=== PATIENT | male | born 1980 | race Two or more races ===

== ENCOUNTER 2025-02-07 12:20 | Inpatient (IN) | payer MEDICAID, OTHER ==
[~2025-02-07] VITALS: Ht 167.6 cm; Wt 61.9 kg
[2025-02-07] MEDS: SODIUM CHLORIDE 0.9% 2,000 ML IV ONE (12:45)
--- NOTE | 2025-02-07 12:53 | ED.PDOC ---
History of Present Illness(SKN HPI Comments 44 year old male presents to the ED with RT hand swelling onset 2 days. Patient states he was cleaning trash from his backyard, is unsure whether he had a spider bite or nail puncture. Since then, patient has been experiencing pain, swelling, drainage from RT hand. Denies any PMHx as well as fever, chills, nausea, vomiting, diarrhea, chest pain, shortness of breath, dizziness. No other symptoms or modifying factors present at this time. Chief Complaint: Cellulitis Time Seen by MD: 12:35 History of Present Illness: Medications, Allergies Allergies: Coded Allergies: NO KNOWN ALLERGIES (Unverified , 02/07/25) Home Meds Reported Medications Olanzapine (Zyprexa) 20 Mg Tab, 10 MG PO DAILY for Schizophrenia, TAB 02/08/25 Aripiprazole (Aripiprazole) 10 Mg Tab, 10 MG PO DAILY for Schizophrenia, TAB 02/08/25 Information Source: Patient Mode of Arrival: Ambulatory Severity: Moderate Timing: Hours Duration: Since onset Prehospital treatment: None Location: Hand (RT) Mechanism: Spontaneous Onset Developed: Other Occurence: Outdoors Object: Unknown Retained Foreign Body: No Tetanus: Unknown History of: None Associated Signs and Symptoms: Redness, Swelling, Pus, Pain Past Medical History PAST MEDICAL HISTORY: Denies Surgical History: Denies all surgeries Family History Family History: Reviewed,noncontributory to illness, No family hx of Cancer, No family hx of DM, No family hx of Heart wisam, No family hx of HTN, No family hx ofKidney wisam, No family hx of Liver wisam, No family hx of Lung wisam, No family hx of Stroke Social History Smoker: Non-Smoker Alcohol: Denies ETOH Use Drugs: Denies Drug Use Lives In: Home Constitutional: denies: chills, diaphoresis, fatigue, fever, malaise, sweats, weakness, others EENTM: denies: blurred vision, double vision, ear bleeding, ear discharge, ear drainage, ear pain, ear ringing, eye pain, eye redness, hearing loss, mouth pain, mouth swelling, nasal discharge, nose bleeding, nose congestion, nose pain, photophobia, tearing, throat pain, throat swelling, voice changes, others Respiratory: denies: cough, hemoptysis, orthopnea, SOB at rest, shortness of breath, SOB with excertion, stridor, wheezing, others Cardiovascular: denies: chest pain, dizzy spells, diaphoresis, Dyspnea on exertion, edema, irregular heart beat, left arm pain, lightheadedness, palpitations, PND, syncope, others Gastrointestinal: denies: abdomen distended, abdominal pain, blood streaked bowels, constipated, diarrhea, dysphagia, difficulty swallowing, hematemesis, melena, nausea, poor appetite, poor fluid intake, rectal bleeding, rectal pain, vomiting, others Genitourinary: denies: burning, dysuria, flank pain, frequency, hematuria, incontinence, penile discharge, penile sore, pain, testicle pain, testicle swelling, urgency, others Neurological: denies: dizziness, fainting, headache, left sided numbness, left sided weakness, numbness, paresthesia, pre-existing deficit, right sided numbness, right sided weakness, seizure, speech problems, tingling, tremors, weakness, others Musculoskeletal: reports: others (RT hand pain, swelling); denies: back pain, gout, joint pain, joint swelling, muscle pain, muscle stiffness, neck pain Integumetry: reports: wounds (RT hand), others (swelling, drainage); denies: bruises, change in color, change in hair/nails, dryness, laceration, lesions, lumps, rash Allergic/Immunocompromised: denies: Difficulty Healing, Frequent Infections, Hives, Itching, others Hematologic/Lymphatic: denies: anemia, blood clots, easy bleeding, easy bruising, swollen glands, others Endocrine: denies: excessive hunger, excessive sweating, excessive thirst, excessive urination, flushing, intolerance to cold, intolerance to heat, unexplained weight gain, unexplained weight loss, others Psychiatric: denies: anxiety, bipolar disorder, depression, hopeless, panic disorder, schizophrenia, sleepless, suicidal, others All Other Systems: Reviewed and Negative Physical Exam General Appearance: No Apparent Distress, Normal HEENT: Normal ENT Inspection, Pharynx Normal, TMs Normal Neck: Full Range of Motion, Non-Tender, Normal, Normal Inspection Respiratory: Chest Non-Tender, Lungs Clear, No Accessory Muscle Use, No Re spiratory Distress, Normal Breath Sounds Cardiovascular: No Edema, No JVD, No Murmur, No Gallop, Normal Peripheral Pulses, Regular Rate/Rhythm Breast Exam: Deferred Gastrointestinal: No Organomegaly, Non Tender, No Pulsatile Mass, Normal Bowel Sounds, Soft Genitalia: Deferred Pelvic: Deferred Rectal: Deferred Extremities: No calf tenderness, Normal capillary refill, Normal inspection, Normal range of motion, Non-tender, No pedal edema Musculoskeletal : Apperance: Normal Neurologic: Alert, 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 Was a procedure done?: No Differential Diagnosis (INTG) Differential Diagnosis: Cellulitis, Contusion, Hematoma, Laceration, Puncture Wound Differential Diagnosis: N/A Differential Diagnosis: Abrasion, Cellulitis, Contusion, Hematoma Abscess: Abscess, Bacteremia, Cellulitis Differential Diagnosis: Osteomyelitis X-Ray, Labs, Meds, VS Vital Signs Date Time Temp Pulse Resp B/P (MAP) Pulse Ox O2 Delivery O2 Flow Rate FiO2 02/07/25 18:15 101 02/07/25 18:00 62 11 94/64 (74) 97 02/07/25 17:30 61 12 94/64 (74) 97 02/07/25 17:01 98.7 72 17 79/54 (62) 100 98.7 02/07/25 16:58 98.7 72 17 79/57 (64) 100 98.7 02/07/25 14:25 97.5 86 17 81/57 (65) 100 97.5 02/07/25 13:00 95 18 99 Room Air 02/07/25 13:00 97.5 95 18 92/57 (69) 99 97.5 02/07/25 12:41 97.7 85 17 90/56 (67) 99 97.7 Lab Test 02/07/25 12:53 02/07/25 12:50 Range/Units Lactic Acid Level 1.5 0.4-2.0 mmol/L White Blood Count 20.7 H 4.4-10.8 10^3/uL Red Blood Count 4.32 L 4.5-5.90 10^6/uL Hemoglobin 14.1 13.5-17.5 g/dL Hematocrit 42.3 41.0-53.0 % Mean Corpuscular Volume 97.9 80.0-100.0 fL Mean Corpuscular Hemoglobin 32.7 H 28.0-32.0 pg Mean Corpuscular Hemoglobin Concent 33.4 32.0-36.0 g/dL Red Cell Distribution Width 13.4 11.8-14.3 % Platelet Count 267 140-450 10^3/uL Mean Platelet Volume 7.6 6.9-10.8 fL Neutrophils (%) (Auto) 90.0 H 37.0-80.0 % Lymphocytes (%) (Auto) 5.0 L 10.0-50.0 % Monocytes (%) (Auto) 4.6 0.0-12.0 % Eosinophils (%) (Auto) 0.1 0.0-7.0 % Basophils (%) (Auto) 0.3 0.0-2.0 % Neutrophils # (Auto) 18.6 H 1.6-8.6 10 ^3/uL Lymphocytes # (Auto) 1.0 0.4-5.4 10 ^3/uL Monocytes # (Auto) 0.9 0-1.3 10 ^3/uL Eosinophils # (Auto) 0 0-0.8 10 ^3/uL Basophils # (Auto) 0.1 0-0.2 10 ^3/uL Nucleated Red Blood Cells 0.1 % Sodium Level 136 136-145 mmol/L Potassium Level 4.6 3.5-5.1 mmol/L Chloride Level 101 98-107 mmol/L Carbon Dioxide Level 27 20-31 mmol/L Anion Gap 8 5-15 Blood Urea Nitrogen 17 9-23 mg/dL Creatinine 0.69 L 0.700-1.30 mg/dL Glomerular Filtration Rate Calc 117 >90 mL/min BUN/Creatinine Ratio 24.6 H 10.0-20.0 Serum Glucose 114 H 74-106 mg/dL Hemoglobin A1c 5.5 <5.7 % A1C Calcium Level 9.2 8.7-10.4 mg/dL Total Bilirubin 0.5 0.2-1.0 mg/dL Aspartate Amino Transferase (AST) 27 13-40 U/L Alanine Aminotransferase (ALT) 35 7-40 U/L Alkaline Phosphatase 110 46-116 U/L Total Protein 6.2 5.7-8.2 g/dL Albumin 3.8 3.2-4.8 g/dL Microbiology Date/Time Source Procedure Growth Status 02/07/25 14:34 Hand Right Gram Stain - Final Resulted 02/07/25 14:34 Hand Right Wound Culture - Preliminary Resulted 02/07/25 13:00 Blood Blood Culture - Preliminary NO GROWTH AFTER 24 HOURS OF INCUBATION. Resulted 02/07/25 12:50 Blood Blood Culture - Preliminary NO GROWTH AFTER 24 HOURS OF INCUBATION. Resulted [facility] [id number] [address] Ph: [phone] DIAGNOSTIC IMAGING Diagnostic Imaging Report : [id number] Signed PATIENT: ALEX NOONANCT: [id number] UNIT: [id number] : 1980 LOC: ER ROOM / BED: / AGE / SEX: 44 / M ADM STATUS: REG ER SERVICE [id number] ORDERING PHYSICIAN: DUNIA WILSON MD PROCEDURE(s): RHAN - R HAND 3 VIEW XRAY REASON: hand infection ORDER NUMBER(s): [id number], ACCESSION NUMBER(s): [id number] XY R HAND 3 VIEW XRAY, INDICATION: hand infection TECHNICAL DATA: Frontal, oblique and lateral views were obtained of the right hand. COMPARISON: None FINDINGS: No fracture is identified. Chronic appearing injury of the 5th metacarpal bone. Joint spaces are maintained. Alignment is anatomic. Dorsal soft tissue swelling in the hand. IMPRESSION: 1. No acute fracture or dislocation of the right hand. 2. Dorsal soft tissue swelling of the hand. HS:Y ATED BY: ROSALINA MORALEZ MD DICTATED DATE/TIME: 02/07/25 130 SIGNED BY: ROSALINA MORALEZ MD SIGNED DATE/TIME: 02/07/25 130 CC: X-Ray, Labs, Meds, VS Comment 1840: Patient seen and examined by Dr. Zuñiga (Orthopedics) Recommend to admit the patient to undergo incision and drainage tomorrow morning NPO post midnight Time of 1ST Reevaluation: 13:05 Reevaluation 1ST: Unchanged Patient Education/Counseling: Diagnosis, Treatment, Prognosis Family Education/Counseling: No Family Present Additional Information The following tests were ordered, and results were reviewed by me: R HAND 3 VIEW XRAY, CBC, CMP, LA W/REFLEX, BLOOD CULTURE, WOUND CULTURE W/ GS I reviewed and agreed with the following test results read by other providers:R HAND 3 VIEW XRAY, I discussed treatment and results with medical personnel and: Patient Comprehensive systems review obtained and negative except for what is stated in the HPI. Departure 1 Departure Time of Disposition: 20:07 (Patient with cellulitis and possible abscess of the right hand. In his purulent drainage. Empirically cover patient with antibiotics and admitted the patient for orthopedic consultation) Impression: Primary Impression: Abscess of right hand Additional Impression: Cellulitis of right hand Disposition: 09 ADMITTED INPATIENT Admit to: Med Surg Condition: Serious Critical Care Note Critical Care Time?: Yes Critical care comment: Purulent cellulitis Authorized and Performed by: Dunia Wilson MD Total critical care time: Approximately 44 minutes Due to a high probability of clinically significant, life threatening deterioration, the patient required my highest level of preparedness to intervene emergently and I personally spent this critical care time directly and personally managing the patient. This critical care time included obtaining a history; examining the patient; pulse oximetry; ordering and review of studies; arranging urgent treatment with development of a management plan; evaluation of patient's response to treatment; frequent reassessment; and, discussions with other providers. This critical care time was performed to assess and manage the high probability of imminent, life-threatening deterioration that could result in multi-organ failure. It was exclusive of separately billable procedures and treating other patients and teaching time. Please see my other sections and the rest of the note for further information on patient assessment and treatment. Stability Stability form required: No I personally scribed for DUNIA WILSON MD ([email or web address]) on 02/07/25 at 12:53. Electronically submitted by Eguenia Miramontes ([email or web address]). I personally scribed for DUNIA WILSON MD ([email or web address]) on 02/07/25 at 13:00. Electronically submitted by Eugenia Miramontes ([email or web address]). I personally scribed for DUNIA WILSON MD ([email or web address]) on 02/07/25 at 14:02. Electronically submitted by Eugenia Miramontes ([email or web address]). I personally scribed for DUNIA WILSON MD ([email or web address]) on 4/1/25 at 18:45. Electronically submitted by Guanako Gaspar ([email or web address]). DUNIA WILSON MD Feb 07, 2025 12:53
--- NOTE | 2025-02-07 13:03 | DVH ---
XY R HAND 3 VIEW XRAY, INDICATION: hand infection TECHNICAL DATA: Frontal, oblique and lateral views were obtained of the right hand. COMPARISON: None FINDINGS: No fracture is identified. Chronic appearing injury of the 5th metacarpal bone. Joint spaces are main tained. Alignment is anatomic. Dorsal soft tissue swelling in the hand. IMPRESSION: 1. No acute fracture or dislocation of the right hand. 2. Dorsal soft tissue swelling of the hand. HS:Y
[2025-02-07 13:15] LABS: Basophils # (auto) 0.1 10 ^3/uL (0-0.2); Basophils % (auto) 0.3 % (0.0-2.0); Eosinophils # (auto) 0 10 ^3/uL (0-0.8); Eosinophils % (auto) 0.1 % (0.0-7.0); Hematocrit 42.3 % (41.0-53.0); Hemoglobin 14.1 g/dL (13.5-17.5); Mean Corpuscular Hemoglobin 32.7 pg (28.0-32.0); Mean Corpuscular Hgb Conc. 33.4 g/dL (32.0-36.0); Mean Corpuscular Volume 97.9 fL (80.0-100.0); Monocytes # (auto) 0.9 10 ^3/uL (0-1.3); Monocytes % (auto) 4.6 % (0.0-12.0); Neutrophils # (auto) 18.6 10 ^3/uL (1.6-8.6); Nucleated Red Blood Cells % 0.1 %; Platelet Count (auto) 267 10^3/uL (140-450); Red Blood Cells 4.32 10^6/uL (4.5-5.90); Red Cell Distribution Width 13.4 % (11.8-14.3); White Blood Cell 20.7 10^3/uL (4.4-10.8)
[2025-02-07] MEDS: ACETAMINOPHEN 325 MG TAB PO ONE (13:29)
[2025-02-07 13:32] LABS: Alanine Aminotransferase 35 U/L (7-40); Albumin 3.8 g/dL (3.2-4.8); Alkaline Phosphatase 110 U/L (46-116); Anion Gap 8 (5-15); Aspartate Aminotransferase 27 U/L (13-40); BUN/Creatinine Ratio 24.6 (10.0-20.0); Blood Urea Nitrogen 17 mg/dL (9-23); Calcium 9.2 mg/dL (8.7-10.4); Carbon Dioxide 27 mmol/L (20-31); Chloride 101 mmol/L (98-107); Potassium 4.6 mmol/L (3.5-5.1); Total Protein 6.2 g/dL (5.7-8.2)
[2025-02-07 13:33] LABS: Bilirubin, Total 0.5 mg/dL (0.2-1.0); Glucose 114 mg/dL (74-106); Sodium 136 mmol/L (136-145)
[2025-02-07] MEDS: VANCOMYCIN 1GM/200ML PM 200 ML IV ONE (14:08)
[2025-02-07] MEDS: SODIUM CHLORIDE 0.9% 1,000 ML IV ONE ×2 (16:00→18:09)
[2025-02-07] MEDS: CEFEPIME 2GM/50ML NS 50 ML IV ONE (17:29)
[2025-02-07] MEDS ORDERED: ONDANSETRON HCL 4 MG/2 ML VIAL IV PRN (18:45)
[2025-02-07] MEDS ORDERED: NITROGLYCERIN 0.4 MG SL TAB SL PRN (18:45)
[2025-02-07] MEDS ORDERED: VANCOMYCIN PER PHARMACY 0 MG IV SCH (18:45)
[2025-02-07] MEDS ORDERED: HYDROmorphone HCL 2 MG/ML VL/or syr IV PRN (18:45)
[2025-02-07] MEDS ORDERED: MORPHINE SULFATE INJ 2 MG/ml SYRG IV PRN (18:45)
--- NOTE | 2025-02-07 18:47 | DVHHP2 ---
History of Present Illness Reason for Visit: Hand Cellulitis History of Present Illness Patient is a 44 year-old male presented to the ED with RT hand swelling onset 2 days. Patient states he was cleaning trash from his backyard, is unsure whether he had a spider bite or nail puncture. Since then, patient has been experienci ng pain, swelling, drainage from RT hand. Patient was initially being transferred to [facility] but unable to find a bed at multiple sites. After discussion with Dr. Saad Sellers, patient will be admitted to [facility] for Surgery AM 02/08/25. Past Medical History None Review of Systems Constitutional: No: Fever, Chills, Sweats, Weakness, Malaise, Other Eyes: No: Pain, Vision change, Conjunctivae inflammation, Eyelid inflammation, Other, Redness ENT: No: Ear pain, Ear discharge, Nose pain, Nose discharge, Nose congestion, Mouth pain, Mouth swelling, Throat pain, Throat swelling, Other Respiratory: No: Cough, Dry, Shortness of breath, SOB with excertion, Wheezing, Hemoptysis, Pleuritic Pain, Sputum, Wheezing, Other Cardiovascular: No: Chest Pain, Palpitations, Orthopnea, Paroxysmal Noc. Dyspnea, Edema, Lt Headedness, Other Gastrointestinal: No: Nausea, Vomiting, Abdominal Pain, Diarrhea, Constipation, Melena, Hematochezia, Other Musculoskeletal: hand pain Skin: No: Rash, Lesions, Jaundice, Bruising, Other Neurological: No: Weakness, Numbness, Incoordination, Change in speech, Confusion, Seizures, Other Allergies: Coded Allergies: NO KNOWN ALLERGIES (Unverified , 02/07/25) Exam Vital Signs Vital Signs Date Time Temp Pulse Resp B/P (MAP) Pulse Ox O2 Delivery O2 Flow Rate FiO2 02/07/25 18:15 101 02/07/25 18:00 11 94/64 (74) 97 02/07/25 17:01 98.7 98.7 02/07/25 13:00 Room Air Exam Gen: in bed NAD Cvs: N S1/S2, RRR Resp: BLAE Abd: Soft, NT, BS+ 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 x 4 Ext: Right hand swelling with drainage Labs/Xrays Labs Test 02/07/25 12:53 02/07/25 12:50 Range/Units Lactic Acid Level 1.5 0.4-2.0 mmol/L White Blood Count 20.7 H 4.4-10.8 10^3/uL Red Blood Count 4.32 L 4.5-5.90 10^6/uL Hemoglobin 14.1 13.5-17.5 g/dL Hematocrit 42.3 41.0-53.0 % Mean Corpuscular Volume 97.9 80.0-100.0 fL Mean Corpuscular Hemoglobin 32.7 H 28.0-32.0 pg Mean Corpuscular Hemoglobin Concent 33.4 32.0-36.0 g/dL Red Cell Distribution Width 13.4 11.8-14.3 % Platelet Count 267 140-450 10^3/uL Mean Platelet Volume 7.6 6.9-10.8 fL Neutrophils (%) (Auto) 90.0 H 37.0-80.0 % Lymphocytes (%) (Auto) 5.0 L 10.0-50.0 % Monocytes (%) (Auto) 4.6 0.0-12.0 % Eosinophils (%) (Auto) 0.1 0.0-7.0 % Basophils (%) (Auto) 0.3 0.0-2.0 % Neutrophils # (Auto) 18.6 H 1.6-8.6 10 ^3/uL Lymphocytes # (Auto) 1.0 0.4-5.4 10 ^3/uL Monocytes # (Auto) 0.9 0-1.3 10 ^3/uL Eosinophils # (Auto) 0 0-0.8 10 ^3/uL Basophils # (Auto) 0.1 0-0.2 10 ^3/uL Nucleated Red Blood Cells 0.1 % Sodium Level 136 136-145 mmol/L Potassium Level 4.6 3.5-5.1 mmol/L Chloride Level 101 98-107 mmol/L Carbon Dioxide Level 27 20-31 mmol/L Anion Gap 8 5-15 Blood Urea Nitrogen 17 9-23 mg/dL Creatinine 0.69 L 0.700-1.30 mg/dL Glomerular Filtration Rate Calc 117 >90 mL/min BUN/Creatinine Ratio 24.6 H 10.0-20.0 Serum Glucose 114 H 74-106 mg/dL Calcium Level 9.2 8.7-10.4 mg/dL Total Bilirubin 0.5 0.2-1.0 mg/dL Aspartate Amino Transferase (AST) 27 13-40 U/L Alanine Aminotransferase (ALT) 35 7-40 U/L Alkaline Phosphatase 110 46-116 U/L Total Protein 6.2 5.7-8.2 g/dL Albumin 3.8 3.2-4.8 g/dL Assessment/Plan Assessment/Plan # Sepsis due to Right Hand Cellulitis - IV Abx - Cultures - Consult Dr. Sellers for surgery in AM Plan discussed with: Other My Orders Orders - DOTTY ULLOA MD Procedure Category Date Status Time Tetanus PHA 02/07/25 Logged [id number] 18:45 Admit ADMIT 02/07/25 Transmitted 18:39 Code Status CODE 02/07/25 Transmitted 18:39 Vital Signs [facility] 02/07/25 In Process 18:39 Review Orders With [facility] 02/07/25 In Process Adm.Md 18:39 Sodium Chloride 0.9% [facility] 02/07/25 Logged 18:45 Notify Of Changes [facility] 02/07/25 In Process From Base 18:39 Advance Directive [facility] 02/07/25 In Process 18:39 Patient Condition ORDERS 02/07/25 Transmitted 18:39 Allergies JIMMY 02/07/25 In Process 18:39 Hydrocodone-Acet [facility] 02/07/25 Logged 5/325mg Tab ([place] 18:45 Hydromorphone PHA 02/07/25 Logged Injection (Dilaudid 18:45 Ondansetron Hcl [facility] 02/07/25 Logged (Zofran) 18:45 Rhythm Strips Once [facility] 02/07/25 In Process Every Shift 18:39 Oxygen By Nasal RT 02/07/25 Transmitted Cannula 18:39 Nitroglycerin PHA 02/07/25 Logged Sublingual (Ntrostat 18:45 Morphine Sulfate PHA 02/07/25 Logged Injection 18:45 Stat Ekg For Chest [facility] 02/07/25 In Process Pain 18:39 Notify Of Changes [facility] 02/07/25 In Process From Base 18:39 Equipment Worker For [facility] 02/07/25 In Process 24 Hours 18:39 Emergency Dysrhythmia [facility] 02/07/25 In Process Protocol 18:39 Vancomycin Per PHA 02/07/25 Logged Pharmacy 18:45 Meropenem 1gm Ivpb X PHA 02/07/25 Transmitted ONE 18:45 Meropenem 1gm PHA 02/07/25 Transmitted Q8h(Gfr>50) 22:00 Ct R Hand Wo Contrast CT 02/07/25 Logged 18:39 Complete Blood Count LAB 02/08/25 Verified 04:00 Comprehensive LAB 02/08/25 Verified Metabolic Panel 04:00 Magnesium LAB 02/08/25 Verified 04:00 Partial LAB 02/08/25 Verified Thromboplastin Time 04:00 Prothrombin Time W/ LAB 02/08/25 Verified INR 04:00 Chest Portable XY 02/07/25 Logged 18:39 *[address] Nash CONS 02/07/25 Transmitted Marlo 18:39 Date of Service: Feb 07, 2025 Billing Provider: DOTTY ULLOA MD Common Visit Codes: 60239-[id number] INP/OBS CARE (MOD) DOTTY ULLOA MD Feb 07, 2025 18:47
[2025-02-07] MEDS: TETANUS-DIPTH-ACEL PERTUSSIS 0.5ML SYR Tdap IM ONE (19:06)
--- NOTE | 2025-02-07 19:41 | DVHINCON2 ---
Consult Note Consult Consult Note Chief complaint: Right hand swelling and drainage from dorsal aspect History of present illness: The patient is a 44-year-old male presented with 2 day history of swelling eryt herrera over the dorsal aspect of right hand. Patient reports that he was cleaning the trash in his backyard when he felt the scrape to the dorsal aspect of his right hand, specifically over 3rd MCP joint. That evening, he noticed progressive swelling and redness which worsened over the next few days. He now reports purulent drainage from the same area with the associated pain and limited motion due to discomfort and swelling. He denies any fever chills or systemic symptoms. No known retained foreign bodies reported by patient. No prior history of hand infection surgery reported by patient. Patient denies any past history of diabetes, cardiac pulmonary histories or use a daily medication. Patient denies any history of smoking. Patient states he lives at home with his . He denies any numbness tingling upper extremity weakness. Denies any fever chills nausea or vomiting or other concerns. Physical exam: General: Alert oriented mild distress due to hand discomfort. Right hand: Swelling erythema over dorsal aspect of the hand mild worsening/ centered over 3rd MCP joint Purulent drainage noted from a small open lesion over 3rd MCP dorsal aspect warmth and tenderness to palpation present, dorsal aspect of hand with mild fluctuance. Limited active flexion-extension of the 3rd MCP joint secondary to pain however patient is able to make a composite fist able to flex and extend all fingers. Cap refill less than 2 seconds on all fingers. Sensation intact to light touch distally. No signs of lymphangitis at this time. Volar aspect of hand with no erythema edema open skin lesion or other Right hand X-ray with no acute fractures, dorsal swelling of soft tissue noted, no foreign bodies noted Assessment: Right dorsal hand cellulitis with localized abscess over dorsal aspect of the hand mainly 3rd MCP joint likely secondary to traumatic inoculation Plan: Recommendation to medicine team: Obtain MRI right hand without contrast stat to be completed tonight CBC with differential, CRP ESR,CMP Obtain HIV, hepatitis labs, hemoglobin A1c, drug screening Optimize patient for surgery tomorrow Obtain consent for incision and drainage dorsal aspect of right hand NPO patient midnight Pain control per medicine team Contact Orthopedic once MRI is completed or if you have any further questions or concerns ---Agree with above plan. Discussed risks benefits options and alternatives. Risks include but not exclusive to bleeding infection nerve injury need for furt her surgery amputation cardiac and pulmonary complications amputation and . Patient states likely from IV drug use and there is high recurrence rates for these type of infections. He understands and wishes to proceed with surgery. Plan discussed with: Patient, Other (bedside nurse) Visit Coding Surgery Date of Service if different f: Feb 07, 2025 Billing Provider: ANEUDY CEBALLOS Surgery Visit Codes: [id number] INP/OBS CARE(HIGH) ANEUDY CEBALLOS Feb 07, 2025 19:41 JESUS VELASQUEZ MD Feb 08, 2025 13:48
[2025-02-07] MEDS: SODIUM CHLORIDE 0.9% 1,000 ML IV SCH (20:31)
[2025-02-07] MEDS: MEROPENEM 1GM IVPB 50 ML IV ONE (20:31)
--- NOTE | 2025-02-07 20:55 | DVH ---
EXAM: CT RT UPPER EXTREMITY WITH CONT INDICATION: cellulitis EXAM DATE: 02/07/2025 07:47 PM COMPARISON: None TECHNIQUE: Multiple axial CT images of the right upper extremity were obtained using bone algorithm. Axial and coronal reformatting was done. Bone and soft tissue windows were reviewed. Radiation Dose Information: CT Dose: CTDI volume is mGy. Dose-length product is mGy*cm Findings: There is significant soft tissue subcutaneous edema and fluid involving the dorsum of the h and and wrist and also involving the dorsum of the digits bones are unremarkable. And intact. IMPRESSION: Severe cellulitis. If more imaging is required I would recommend MRI exam
[2025-02-07 21:02] VITALS: BP 104/74; PULSE 71; RESP 18; TEMP 97.8; O2SAT 100
[2025-02-07 21:32] VITALS: BP 104/74; PULSE 71; RESP 18; TEMP 97.8; O2SAT 100
[2025-02-07 21:46] VITALS: BP 98/67; PULSE 73; RESP 18; TEMP 97.5; O2SAT 100
[2025-02-07] MEDS: VANCOMYCIN 1GM/250mL NS or D5W KIT IV SCH (23:05)
[2025-02-08] VITALS (8 sets, daily range): BP systolic 92–106; BP diastolic 57–71; PULSE 70–93; RESP 12–20; TEMP 97.4–98.6; O2SAT 92–98
--- NOTE | 2025-02-08 04:24 | ECG ---
[facility] Test Date: 2025-02-08 Test Time: 04:23:20 Pat Name: JUHI NOONAN Department: Room: 0297 Gender: M Patient Access Associate: LUAN : 1980 Requested By: ANEUDY CEBALLOS Order Number: [id number] Reading MD: Reza Forbes Measurements Intervals Jackson Rate: 98 P: 43 SD: 125 QRS: -25 QRSD: 95 T: 35 QT: 320 QTc: 409 Interpretive Statements Sinus rhythm Borderline left axis deviation RSR' in V1 or V2, probably normal variant Baseline wander in lead(s) V2 Electronically Signed On 02-08-2025 21:00:40 PDT by Reza Forbes Please click the below link to view image of tracing.
[2025-02-08] MEDS: MEROPENEM 1GM IVPB 50 ML IV SCH (04:36)
[2025-02-08 04:54] LABS: Urine Bacteria None Seen /hpf (None Seen)
[2025-02-08 04:59] LABS: Urine Blood Negative /uL (Negative); Urine Clarity Clear (Clear); Urine Color Light-Yellow (Yellow); Urine Protein, UAD Negative (Negative); Urine Specific Gravity 1.028 (1.001-1.035); Urine Squamous Epithelial Cell None Seen /hpf (<5); Urine Urobilinogen 4 mg/dL (Negative); Urine WBC 2 /HPF (0-3); Urine pH 6.5 (5.0-9.0)
--- NOTE | 2025-02-08 06:58 | DVH ---
EXAM: XR Chest, 1 View CLINICAL INDICATION: FU TECHNIQUE: Frontal view of the chest. COMPARISON: None FINDINGS: LUNGS AND PLEURAL SPACES: Pulmonary venous congestion. No consolidation. No pneumothorax. HEART: Unremarkable. No cardiomegaly. MEDIASTINUM: Unremarkable. Normal mediastinal contour. BONES/JOINTS: Unremarkable. No acute fracture. OTHER FINDINGS: . IMPRESSION: Pulmonary venous congestion.
[2025-02-08 07:41] LABS: Basophils # (auto) 0 10 ^3/uL (0-0.2); Basophils % (auto) 0.3 % (0.0-2.0); Eosinophils # (auto) 0.1 10 ^3/uL (0-0.8); Eosinophils % (auto) 0.6 % (0.0-7.0); Hematocrit 31.4 % (41.0-53.0); Hemoglobin 10.6 g/dL (13.5-17.5); Lymphocytes % (auto) 6.7 % (10.0-50.0); Mean Corpuscular Hemoglobin 32.7 pg (28.0-32.0); Mean Corpuscular Hgb Conc. 33.8 g/dL (32.0-36.0); Mean Corpuscular Volume 96.9 fL (80.0-100.0); Monocytes # (auto) 0.7 10 ^3/uL (0-1.3); Monocytes % (auto) 4.5 % (0.0-12.0); Neutrophils # (auto) 13.5 10 ^3/uL (1.6-8.6); Neutrophils % (auto) 87.9 % (37.0-80.0); Platelet Count (auto) 244 10^3/uL (140-450); Red Blood Cells 3.24 10^6/uL (4.5-5.90); Red Cell Distribution Width 13.4 % (11.8-14.3); White Blood Cell 15.4 10^3/uL (4.4-10.8)
[2025-02-08 07:48] LABS: INR 1.17 (0.9-1.15); Partial Thromboplastin Time 37.5 SEC (24.5-34.5); Prothrombin Time 12.2 sec (9.3-11.8)
[2025-02-08 07:49] LABS: Anion Gap 8 (5-15); BUN/Creatinine Ratio 21.3 (10.0-20.0); Blood Urea Nitrogen 10 mg/dL (9-23); Carbon Dioxide 24 mmol/L (20-31); Potassium 3.6 mmol/L (3.5-5.1); Sodium 139 mmol/L (136-145)
[2025-02-08 07:50] LABS: Alanine Aminotransferase 379 U/L (7-40); Albumin 2.8 g/dL (3.2-4.8); Alkaline Phosphatase 154 U/L (46-116); Aspartate Aminotransferase 278 U/L (13-40); Bilirubin, Total 0.2 mg/dL (0.2-1.0); Calcium 7.6 mg/dL (8.7-10.4); Chloride 107 mmol/L (98-107); Glucose 112 mg/dL (74-106); Magnesium 1.6 mg/dL (1.6-2.6); Total Protein 4.8 g/dL (5.7-8.2)
[2025-02-08 08:11] LABS: Amphetamine Screen, Urine Pos (NEGATIVE); Barbiturate Scree,Urine Neg (NEGATIVE); Benzodiazephine Screen, Urine Neg (NEGATIVE); Cannabinoid Screen, Urine Neg (NEGATIVE); Cocaine Screen, Urine Neg (NEGATIVE); Opiate Scree,Urine Neg (NEGATIVE); Phencyclidine Screen, Urine Neg (NEGATIVE)
--- NOTE | 2025-02-08 10:10 | DVH ---
INDICATION: transaminitis TECHNIQUE: Multiple real-time sonographic images were obtained of the right upper quadrant. COMPARISON: None FINDINGS: The liver demonstrates coarsened echotexture without focal mass lesions. The liver measures 16 cm. There is no intrahepatic or extrahepatic ductal dilatation. The common duct is not well vis ualized due to obscuration from bowel gas. Trace ascites. The gallbladder is surgically absent. The right kidney measures 11 cm. The right kidney is normal in contour, size, and shape. The echogen icity is normal. There is no hydronephrosis. The pancreas is not well visualized due to overlying bowel gas. IMPRESSION: Status post cholecystectomy. Coarsened liver echotexture suggestive of chronic liver disease. Trace ascites.
[2025-02-08] MEDS ORDERED: ARIP10TA29 PO (10:23)
[2025-02-08] MEDS ORDERED: OLAN20TA PO (10:23)
--- NOTE | 2025-02-08 11:39 | DVHPNRES ---
Progress Note Date Seen: Feb 08, 2025 Resident Creating Document: LOUIE VAN RESIDENT Medical Necessity Reason Pt with a Central, PICC or Fol: No Subjective Review of Systems This is a 44 year-old male presented to the ED with RT hand swelling onset 2 days. Patient states he was cleaning trash from his backyard, is unsure whether he had a spider bite or nail puncture. Since then, patient has been experiencing pain, swelling, drainage from RT hand. Patient was initially being transferred to [facility] but unable to find a bed at multiple sites. After discussion with Dr. Saad Sellers, patient will be admitted to [facility] for Surgery AM 02/08/25. On my initial assessment, patient was seen and examined at bedside. He currently states feeling well, denies any significant shortness of breath, chest pain, abdominal pain, dysuria, nausea, vomiting, diarrhea, constipation, dizziness, lightheadedness. He's currently tolerating diet. Patient is only complain of pain on his right hand, swelling, erythema, he is able to move the hand and the fingers, he is able to have sensation as well, no significant pain out of proportion on palpation. Objective vital signs Vital Sign Date Time Temp Pulse Resp B/P (MAP) Pulse Ox O2 Delivery O2 Flow Rate FiO2 02/08/25 08:37 98.3 76 16 92/57 (69) 98 98.3 02/08/25 08:20 Room Air* 0 21 Total Intake and Output 02/07/25 02/07/25 02/08/25 15:00 23:00 07:00 Intake Total 2000 ml 1050 ml 750 ml Balance 2000 ml 1050 ml 750 ml medications Current Medications Medications Dose Ordered Sig/Melissa Route Start Time Stop Time Status Last Admin Dose Admin Sodium Chloride 1,000 ml @ 125 mls/hr Q8H IV 02/07/25 18:45 02/07/25 20:31 125 MLS/HR Acetaminophen/ Hydrocodone Bitart 1 tab Q4HP PRN PO 02/07/25 18:45 Hydromorphone HCl 0.5 mg Q4HP PRN IV 02/07/25 18:45 Ondansetron HCl 4 mg Q4HP PRN IV 02/07/25 18:45 Nitroglycerin 0.4 mg Q5MINP PRN SL 02/07/25 18:45 Morphine Sulfate 2 mg Q30M PRN IV 02/07/25 18:45 Vancomycin HCl 0 ml @ 0 mls/hr UD IV 02/07/25 18:45 Meropenem 50 ml @ 17 mls/hr Q8H IV 02/08/25 04:00 02/08/25 04:36 17 MLS/HR Vancomycin HCl 250 ml @ 250 mls/hr Q8HR IV 02/07/25 22:15 02/08/25 07:01 250 MLS/HR Olanzapine 10 mg DAILY PO 02/09/25 10:00 Patient Own Medication 10 mg DAILY PO 02/09/25 10:00 UNV Examination Physical examination as below: General: Awake, alert, comfortable appearing, in no acute distress. HEENT: Head is normocephalic and atraumatic. Pupils are equal, round, and reactive to light. Extraocular muscles are intact. No nasal discharge. No facial trauma. Intraoral exam shows moist mucous membranes with no tonsillar enlargement or exudate. Neck: Supple with no cervical lymphadenopathy. Heart: Regular rate without murmur, rub, or gallop. Lungs: Equal breath sounds bilaterally with no wheezing, rales, or rhonchi. There is no chest wall tenderness or instability. Abdomen: No external sign of injury. Bowel sounds are present. Abdomen is soft, nontender. No rebound, no guarding, no rigidity. There are no palpable masses. There is no flank pain on exam. Extremities: Strong peripheral pulses. There is no clubbing, no cyanosis, and no edema. Skin: Right hand and arm are swollen, erythematous, [id number] painful to palpation, with a tract coming from the dorsal aspect of the hand, purulent fluid Neurologic: Cranial nerves II-XII intact without motor, sensory, or cerebellar deficit, no asterixis. laboratory and microbiology Laboratory Tests 02/08/25 06:20 Test 02/08/25 06:20 Range/Units Serum Glucose 112 H 74-106 mg/dL Microbiology Date/Time Source Procedure Growth Status 02/07/25 14:34 Hand Right Gram Stain - Final Resulted 02/07/25 14:34 Hand Right Wound Culture - Preliminary Resulted Labs and/or images reviewed: Labs reviewed by me, Image(s) reviewed by me Problem List/Assessment/Plan Problem List/Assessment/Plan Sepsis due to Right Hand Cellulitis, possible abscess Merrem IV Vancomycin IV Pending blood cultures, wound cultures Continue IV fluids Patient would undergo right hand procedure today by Orthopedics Pending MRI of the right hand Transaminitis Pending liver ultrasound Hep B and hep C antibodies Anemia, mild normocytic normochromic Monitor Secondary coagulopathy Monitor History of schizophrenia Olanzapine 10 mg p.o. q.d. Abilify 10 mg p.o. q.d. Methamphetamine use Counseled on lifestyle modifications Goals of care were discussed for over 30 minutes. FULL CODE. Case was discussed with Dr. Nolan Plan discussed with: Patient, Other (RN) My Orders My Orders Orders - LOUIE VAN RESIDENT Procedure Category Date Status Time LIVER US 02/08/25 Resulted 08:16 Olanzapine Tablet PHA 02/09/25 In Process (Zyprexa Tablet) 10:00 (Nf) Aripiprazole PHA 02/09/25 Logged 10:00 Date of Service: Feb 08, 2025 Billing Provider: DOTTY NOLAN MD Common Visit Codes: [id number] INP/OBS CARE(HIGH) LOUIE VNA RESIDENT Feb 08, 2025 11:39 DOTTY NOLAN MD Feb 14, 2025 12:13
[2025-02-08] MEDS: OLANZapine 5 MG TAB PO ONE (11:40)
[2025-02-08] MEDS ORDERED: fentaNYL CITRATE 100 MCG/2 ML VL ONE ×2 (13:47→14:10)
[2025-02-08] MEDS ORDERED: ACETAMINOPHEN IV 1000 MG/100ML (10MG/ML) IV PRN (15:00)
[2025-02-08] MEDS ORDERED: HYDROmorphone HCL 2 MG/ML VL/or syr IV PRN (15:00)
[2025-02-08] MEDS ORDERED: MEPERIDINE HCL (25 MG/ML) 1ML VIAL IV PRN (15:00)
--- NOTE | 2025-02-08 15:12 | DVH ---
EXAM: MRI RT HAND MRI NON JOINT HISTORY: R/O OSTEIO COMPARISON: None TECHNIQUE: Multiplanar, multisequence MRI of the right hand was performed. FINDINGS: Extensor tendons: Focal fluid distention of the 4th extensor tendon sheath at the level of the 4th me tacarpal distal metadiaphysis with focal discontinuity of the left paramedian tendon sheath. Flexor tendons: Unremarkable. Joints: Unremarkable. Bone marrow: No focal lesion. Musculature: Thenar, hypothenar and intrinsic muscles of the hand are within normal limits. Overlying soft tissues: Extensive dorsal soft tissue edema noted. There is ulceration on the dorsal aspect of the hand, 3rd and 4th digits. No drainable fluid collection noted in this limited unenhanc ed study. IMPRESSION: 1. Cellulitis and dorsal soft tissue ulceration with no evidence of osteomyelitis or abscess formatio n in this limited unenhanced study. 2. Findings suggestive of 4th extensor tenosynovitis, possibly infectious. There is focal discontinu ity of left paramedian dorsal tendon sheath at the level of 4th metacarpal distal metadiaphysis.
--- NOTE | 2025-02-08 16:36 | DVHOP2 ---
Operative Report - 2 Report Details Date: 02/08/25 Preop Diagnosis: infected right dorsal hand abscess Postop Diagnosis: infected right dorsal hand abscess Surgeon: Saad Sellers MD Anesthesiologist: Deb VIGIL Anesthesia: General Consent: The patient was informed of the risks and benefits of the procedure. These include but are not limited to complications of anesthesia, postoperative infection, incomplete relief of symptoms, recurrence of symptoms, damage to blood vessels, nerves and tendons, deep venous thrombosis, pulmonary embolism and possible need for repeat surgery in the future. Estimated Blood Loss: 5 cc Name of Procedure Performed Right hand irrigation and debridement, middle finger extensor tendon debridement Procedure Details Procedure Details: After administering appropriate antibiotics and anesthesia, the upper extremity was prepped and draped in the usual standard fashion. The arm was elevated and the tourniquet inflated to 250 mmHg. A zig-zag incision was made over base of right middle finger along abscess to mid hand. Dissection was carried down to the extensor sheath with care taken to identify and protect the neurovascular bundles. Patient was noted to have a large abscess. After irrigating out the wound with copious amounts of sterile saline, we then did a betadine lavage followed by another irrigation of 1L of normal saline. We then debrided the necrotic skin, fat, and nonviable tissue overlying the tendon. vanco powder placed inside the wound followed by iodoform. the skin was closed with 3-0 nylon simple interrupted sutures. The patient was sent to the recovery room in good condition, having tolerated the procedure well Specimen: culture x 3 Condition Fair Disposition Still a Patient SAAD SELLERS MD Feb 08, 2025 16:36
[2025-02-09 05:00] VITALS: BP 92/50; PULSE 89; RESP 17; TEMP 97.5; O2SAT 96
[2025-02-09 07:00] LABS: Anion Gap 6 (5-15); BUN/Creatinine Ratio 13.3 (10.0-20.0); Carbon Dioxide 26 mmol/L (20-31); Magnesium 1.9 mg/dL (1.6-2.6); Potassium 3.9 mmol/L (3.5-5.1); Sodium 140 mmol/L (136-145)
[2025-02-09 07:03] LABS: Basophils # (auto) 0 10 ^3/uL (0-0.2); Basophils % (auto) 0.5 % (0.0-2.0); Eosinophils # (auto) 0.1 10 ^3/uL (0-0.8); Eosinophils % (auto) 1.1 % (0.0-7.0); Hematocrit 32.6 % (41.0-53.0); Hemoglobin 11.3 g/dL (13.5-17.5); Lymphocytes # (auto) 1.7 10 ^3/uL (0.4-5.4); Mean Corpuscular Hemoglobin 33.6 pg (28.0-32.0); Mean Corpuscular Hgb Conc. 34.7 g/dL (32.0-36.0); Mean Corpuscular Volume 96.8 fL (80.0-100.0); Monocytes # (auto) 0.7 10 ^3/uL (0-1.3); Monocytes % (auto) 6.2 % (0.0-12.0); Neutrophils # (auto) 8.3 10 ^3/uL (1.6-8.6); Neutrophils % (auto) 76.2 % (37.0-80.0); Platelet Count (auto) 310 10^3/uL (140-450); Red Blood Cells 3.37 10^6/uL (4.5-5.90); Red Cell Distribution Width 13.6 % (11.8-14.3); White Blood Cell 10.9 10^3/uL (4.4-10.8)
[2025-02-09 07:06] LABS: Alanine Aminotransferase 339 U/L (7-40); Albumin 3.1 g/dL (3.2-4.8); Alkaline Phosphatase 138 U/L (46-116); Aspartate Aminotransferase 124 U/L (13-40); Bilirubin, Total 0.2 mg/dL (0.2-1.0); Blood Urea Nitrogen 8 mg/dL (9-23); Calcium 8.4 mg/dL (8.7-10.4); Chloride 108 mmol/L (98-107); Glucose 112 mg/dL (74-106); Total Protein 5.3 g/dL (5.7-8.2)
[2025-02-09 09:10] LABS: Hepatitis A Ab IgM Negative; Hepatitis B Surface Antibody Positive (Negative)
[2025-02-09 09:18] VITALS: BP 94/56; PULSE 71; RESP 18; TEMP 97.8; O2SAT 96
[2025-02-09] MEDS: ARIPIPRAZOLE 10 MG PO SCH (10:00)
[2025-02-09] MEDS: OLANZapine 5 MG TAB PO SCH (11:27)
[2025-02-09 12:56] LABS: Hepatitis B Core IgM Negative (Negative); Hepatitis B Surface Antigen Negative (Negative)
[2025-02-09 13:30] VITALS: BP 99/88; PULSE 100; RESP 19; TEMP 97.4; O2SAT 99
--- NOTE | 2025-02-09 13:52 | DVHPNRES ---
Progress Note Date Seen: Feb 09, 2025 Resident Creating Document: LOUIE VAN RESIDENT Medical Necessity Reason Pt with a Central, PICC or Fol: No Subjective Review of Systems On my assessment, patient was seen and examined at bedside. He currently states feeling well, denies any significant shortness of breath, chest pain, abdominal pain, dysuria, nausea, vomiting, diarrhea, constipation, dizziness, lightheadedness. He's currently tolerating diet. Patient is only complain of pain on his right hand, swelling, erythema, he is able to move the hand and the fingers, he is able to have sensation as well, no significant pain out of proportion on palpation. Objective vital signs Vital Sign Date Time Temp Pulse Resp B/P (MAP) Pulse Ox O2 Delivery O2 Flow Rate FiO2 02/09/25 09:18 97.8 71 18 94/56 (69) 96 97.8 02/09/25 08:15 Room Air* 0 21 Total Intake and Output 02/08/25 02/08/25 02/09/25 14:59 22:59 06:59 Intake Total 450 ml 0 ml 240 ml Output Total 800 ml Balance 450 ml 0 ml -560 ml medications Current Medications Medications Dose Ordered Sig/Melissa Route Start Time Stop Time Status Last Admin Dose Admin Sodium Chloride 1,000 ml @ 125 mls/hr Q8H IV 02/07/25 18:45 02/09/25 11:43 125 MLS/HR Acetaminophen/ Hydrocodone Bitart 1 tab Q4HP PRN PO 02/07/25 18:45 Hydromorphone HCl 0.5 mg Q4HP PRN IV 02/07/25 18:45 Ondansetron HCl 4 mg Q4HP PRN IV 02/07/25 18:45 Nitroglycerin 0.4 mg Q5MINP PRN SL 02/07/25 18:45 Morphine Sulfate 2 mg Q30M PRN IV 02/07/25 18:45 Vancomycin HCl 0 ml @ 0 mls/hr UD IV 02/07/25 18:45 Meropenem 50 ml @ 17 mls/hr Q8H IV 02/08/25 04:00 02/09/25 11:44 17 MLS/HR Vancomycin HCl 250 ml @ 250 mls/hr Q8HR IV 02/07/25 22:15 02/09/25 06:16 250 MLS/HR Olanzapine 10 mg DAILY PO 02/09/25 10:00 02/09/25 11:27 10 MG Patient Own Medication 10 mg DAILY PO 02/09/25 10:00 Examination Physical examination as below: General: Awake, alert, comfortable appearing, in no acute distress. HEENT: Head is normocephalic and atraumatic. Pupils are equal, round, and reactive to light. Extraocular muscles are intact. No nasal discharge. No facial trauma. Intraoral exam shows moist mucous membranes with no tonsillar enlargement or exudate. Neck: Supple with no cervical lymphadenopathy. Heart: Regular rate without murmur, rub, or gallop. Lungs: Equal breath sounds bilaterally with no wheezing, rales, or rhonchi. There is no chest wall tenderness or instability. Abdomen: No external sign of injury. Bowel sounds are present. Abdomen is soft, nontender. No rebound, no guarding, no rigidity. There are no palpable masses. There is no flank pain on exam. Extremities: Strong peripheral pulses. There is no clubbing, no cyanosis, and no edema. Skin: Right hand and arm are swollen, erythematous, [id number] painful to palpation, with a tract coming from the dorsal aspect of the hand, purulent fluid. dressing applied Neurologic: Cranial nerves II-XII intact without motor, sensory, or cerebellar deficit, no asterixis. laboratory and microbiology Laboratory Tests 02/09/25 06:00 Test 02/09/25 06:00 Range/Units Serum Glucose 112 H 74-106 mg/dL Microbiology Date/Time Source Procedure Growth Status 02/08/25 14:21 Finger Right Middle Gram Stain - Final Resulted 02/08/25 14:21 Finger Right Middle Anaerobic Culture Pending Resulted 02/08/25 14:21 Finger Right Middle Aerobic Culture - Preliminary Resulted 02/07/25 13:00 Blood Blood Culture - Preliminary NO GROWTH AFTER 48 HOURS OF INCUBATION. Resulted Labs and/or images reviewed: Labs reviewed by me, Image(s) reviewed by me Problem List/Assessment/Plan Problem List/Assessment/Plan Sepsis due to Right Hand Cellulitis, abscess s/p I&D dc Merrem IV Vancomycin IV Pending blood cultures, wound cultures growing gram (+) sensitive to vancomycin, no gram (-) Continue IV fluids Patient underwent right hand procedure by Orthopedics, an I&D was performed Transaminitis Chronic liver disease, likely cirrhosis Monitor Anemia, mild normocytic normochromic Monitor Secondary coagulopathy Monitor History of schizophrenia Olanzapine 10 mg p.o. q.d. Abilify 10 mg p.o. q.d. Methamphetamine use Counseled on lifestyle modifications Goals of care were discussed for over 30 minutes. FULL CODE. Case was discussed with Dr. Marquez Plan discussed with: Patient, Other (RN) My Orders My Orders Orders - LOUIE VAN Procedure Category Date Status Time Discontinue Tele JIMMY 02/08/25 In Process 14:30 Transfer Orders XFER 02/08/25 Transmitted 14:30 Date of Service: Feb 09, 2025 Billing Provider: EVERARDO MARQUEZ DO Common Visit Codes: [id number] INP/OBS CARE(HIGH) LOUIE VAN RESIDENT Feb 09, 2025 13:52 EVERARDO MARQUEZ DO Feb 10, 2025 15:05
[2025-02-09 17:25] VITALS: BP 111/71; PULSE 84; RESP 17; TEMP 97.3; O2SAT 94
[2025-02-09] MEDS: SODIUM CHLORIDE 0.9% 1,000 ML IV SCH (17:30)
[2025-02-09 20:15] VITALS: PULSE 87; RESP 18; O2SAT 98
[2025-02-09 21:00] VITALS: BP 103/63; PULSE 83; RESP 17; TEMP 98.1; O2SAT 97
[2025-02-10] VITALS (8 sets, daily range): BP systolic 95–110; BP diastolic 55–74; PULSE 70–88; RESP 16–19; TEMP 97.4–98.4; O2SAT 96–100
[2025-02-10 07:32] LABS: Basophils # (auto) 0.1 10 ^3/uL (0-0.2); Basophils % (auto) 0.9 % (0.0-2.0); Eosinophils # (auto) 0.2 10 ^3/uL (0-0.8); Eosinophils % (auto) 2.1 % (0.0-7.0); Hematocrit 35.2 % (41.0-53.0); Hemoglobin 11.9 g/dL (13.5-17.5); Mean Corpuscular Hemoglobin 32.9 pg (28.0-32.0); Mean Corpuscular Hgb Conc. 33.7 g/dL (32.0-36.0); Mean Corpuscular Volume 97.4 fL (80.0-100.0); Monocytes # (auto) 0.7 10 ^3/uL (0-1.3); Monocytes % (auto) 6.9 % (0.0-12.0); Neutrophils # (auto) 7.1 10 ^3/uL (1.6-8.6); Neutrophils % (auto) 70.1 % (37.0-80.0); Platelet Count (auto) 345 10^3/uL (140-450); Red Blood Cells 3.62 10^6/uL (4.5-5.90); Red Cell Distribution Width 13.6 % (11.8-14.3); White Blood Cell 10.1 10^3/uL (4.4-10.8)
[2025-02-10 07:38] LABS: Albumin 3.3 g/dL (3.2-4.8); Anion Gap 7 (5-15); Aspartate Aminotransferase 31 U/L (13-40); BUN/Creatinine Ratio 18.5 (10.0-20.0); Blood Urea Nitrogen 10 mg/dL (9-23); Calcium 8.9 mg/dL (8.7-10.4); Carbon Dioxide 25 mmol/L (20-31); Chloride 106 mmol/L (98-107); Magnesium 2.2 mg/dL (1.6-2.6); Potassium 4.1 mmol/L (3.5-5.1); Sodium 138 mmol/L (136-145); Total Protein 5.8 g/dL (5.7-8.2)
[2025-02-10 07:40] LABS: Alanine Aminotransferase 221 U/L (7-40); Alkaline Phosphatase 132 U/L (46-116); Glucose 110 mg/dL (74-106)
[2025-02-10 07:41] LABS: Bilirubin, Total 0.2 mg/dL (0.2-1.0)
[2025-02-10] MEDS: IOHEXOL 300 MG/ML 100ML BOTTLE IJ ONE (13:06)
[2025-02-10] MEDS: ONDANSETRON HCL 4 MG/2 ML VIAL IV ONE (13:07)
[2025-02-10] MEDS: VANCOMYCIN HCL 1000 MG VL ONE (13:07)
[2025-02-10] MEDS: ceFAZolin 2 GM/D5W50ml 50 ML IV SCH (14:23)
--- NOTE | 2025-02-10 15:25 | DVHPNRES ---
Progress Note Date Seen: Feb 10, 2025 Resident Creating Document: LOUIE VAN RESIDENT Medical Necessity Reason Pt with a Central, PICC or Fol: No Subjective Review of Systems On my assessment, patient was seen and examined at bedside. He currently states feeling well, denies any significant shortness of breath, chest pain, abdominal pain, dysuria, nausea, vomiting, diarrhea, constipation, dizziness, lightheadedness. He's currently tolerating diet. Patient is only complain of mild pain on his right hand, swelling, erythema, he is able to move the hand and the fingers, he is able to have sensation as well, no significant pain out of proportion on palpation. He states feeling much better than on admission. Objective vital signs Vital Sign Date Time Temp Pulse Resp B/P (MAP) Pulse Ox O2 Delivery O2 Flow Rate FiO2 02/10/25 13:00 97.8 70 17 101/64 (76) 97 97.8 02/10/25 08:05 Room Air* 0 21 Total Intake and Output 02/09/25 02/09/25 02/10/25 15:00 23:00 07:00 Intake Total 550 ml 500 ml 750 ml Output Total 1700 ml 1650 ml Balance 550 ml -1200 ml -900 ml medications Current Medications Medications Dose Ordered Sig/Melissa Route Start Time Stop Time Status Last Admin Dose Admin Acetaminophen/ Hydrocodone Bitart 1 tab Q4HP PRN PO 02/07/25 18:45 Hydromorphone HCl 0.5 mg Q4HP PRN IV 02/07/25 18:45 Ondansetron HCl 4 mg Q4HP PRN IV 02/07/25 18:45 Nitroglycerin 0.4 mg Q5MINP PRN SL 02/07/25 18:45 Morphine Sulfate 2 mg Q30M PRN IV 02/07/25 18:45 Olanzapine 10 mg DAILY PO 02/09/25 10:00 02/10/25 08:54 10 MG Patient Own Medication 10 mg DAILY PO 02/09/25 10:00 Cefazolin Sodium/ Dextrose 50 ml @ 50 mls/hr Q8HR IV 02/10/25 14:00 02/10/25 14:23 50 MLS/HR Examination Physical examination as below: General: Awake, alert, comfortable appearing, in no acute distress. HEENT: Head is normocephalic and atraumatic. Pupils are equal, round, and reactive to light. Extraocular muscles are intact. No nasal discharge. No facial trauma. Intraoral exam shows moist mucous membranes with no tonsillar enlargement or exudate. Neck: Supple with no cervical lymphadenopathy. Heart: Regular rate without murmur, rub, or gallop. Lungs: Equal breath sounds bilaterally with no wheezing, rales, or rhonchi. There is no chest wall tenderness or instability. Abdomen: No external sign of injury. Bowel sounds are present. Abdomen is soft, nontender. No rebound, no guarding, no rigidity. There are no palpable masses. There is no flank pain on exam. Extremities: Strong peripheral pulses. There is no clubbing, no cyanosis, and no edema. Skin: Right hand and arm are swollen, erythematous, [id number] painful to palpation, with a tract coming from the dorsal aspect of the hand, purulent fluid. dressing applied Neurologic: Cranial nerves II-XII intact without motor, sensory, or cerebellar deficit, no asterixis. laboratory and microbiology Laboratory Tests 02/10/25 06:16 Test 02/10/25 06:16 Range/Units Serum Glucose 110 H 74-106 mg/dL Microbiology Date/Time Source Procedure Growth Status 02/08/25 14:21 Finger Right Middle Gram Stain - Final Resulted 02/08/25 14:21 Finger Right Middle Anaerobic Culture - Preliminary Resulted 02/08/25 14:21 Finger Right Middle Aerobic Culture - Preliminary Resulted 02/07/25 13:00 Blood Blood Culture - Preliminary NO GROWTH AFTER 72 HOURS OF INCUBATION. Resulted Labs and/or images reviewed: Labs reviewed by me, Image(s) reviewed by me Problem List/Assessment/Plan Problem List/Assessment/Plan Sepsis due to Right Hand Cellulitis, abscess s/p I&D dc Vancomycin IV Pending blood cultures no growth, wound cultures prelim growing gram (+) sensitive to vancomycin, no gram (-). MSSA is growing Continue cefazolin 2 g IV q.8 hours DC IV fluids Patient underwent right hand procedure by Orthopedics, an I&D was performed Transaminitis Chronic liver disease, likely cirrhosis Monitor, trending down Anemia, mild normocytic normochromic Monitor Secondary coagulopathy Monitor History of schizophrenia Olanzapine 10 mg p.o. q.d. Abilify 10 mg p.o. q.d. Methamphetamine use Counseled on lifestyle modifications Goals of care were discussed for over 30 minutes. FULL CODE. Case was discussed with Dr. Padilla Plan discussed with: Patient, Other (RN) My Orders My Orders Orders - LOUIE VAN RESIDENT Procedure Category Date Status Time Cefazolin 2 PHA 02/10/25 In Process [id number] (Ancef) 14:00 Dietary NOTICE 02/10/25 Transmitted Recommendations 14:13 Dietary Evaluation Review Comments: 1) Liban 1 pk BID 2) Continue current plan of care Expected Outcomes/Goals: Pt will meet >75% estimated needs Fu 5-7 days Date of Service: Feb 10, 2025 Billing Provider: AMERICO PADILLA MD Common Visit Codes: [id number] INP/OBS CARE(HIGH) LOUIE VAN RESIDENT Feb 10, 2025 15:25 AMERICO PADILLA MD Feb 10, 2025 20:02
[2025-02-11 01:00] VITALS: BP 103/53; PULSE 65; RESP 19; TEMP 97.8; O2SAT 96
[2025-02-11 05:00] VITALS: BP 91/61; PULSE 70; RESP 18; TEMP 97.8; O2SAT 97
[2025-02-11 06:11] LABS: Basophils # (auto) 0.1 10 ^3/uL (0-0.2); Basophils % (auto) 1.4 % (0.0-2.0); Eosinophils # (auto) 0.4 10 ^3/uL (0-0.8); Eosinophils % (auto) 4.6 % (0.0-7.0); Hematocrit 34.6 % (41.0-53.0); Hemoglobin 11.9 g/dL (13.5-17.5); Lymphocytes # (auto) 2.3 10 ^3/uL (0.4-5.4); Mean Corpuscular Hemoglobin 33.5 pg (28.0-32.0); Mean Corpuscular Hgb Conc. 34.5 g/dL (32.0-36.0); Mean Corpuscular Volume 96.9 fL (80.0-100.0); Monocytes # (auto) 0.7 10 ^3/uL (0-1.3); Monocytes % (auto) 8.8 % (0.0-12.0); Neutrophils # (auto) 4.3 10 ^3/uL (1.6-8.6); Neutrophils % (auto) 55.2 % (37.0-80.0); Nucleated Red Blood Cells % 0.1 %; Platelet Count (auto) 355 10^3/uL (140-450); Red Blood Cells 3.57 10^6/uL (4.5-5.90); Red Cell Distribution Width 13.3 % (11.8-14.3); White Blood Cell 7.8 10^3/uL (4.4-10.8)
[2025-02-11 06:33] LABS: Albumin 3.2 g/dL (3.2-4.8); Alkaline Phosphatase 112 U/L (46-116); Anion Gap 7 (5-15); Aspartate Aminotransferase 17 U/L (13-40); BUN/Creatinine Ratio 25.4 (10.0-20.0); Blood Urea Nitrogen 16 mg/dL (9-23); Calcium 8.8 mg/dL (8.7-10.4); Carbon Dioxide 24 mmol/L (20-31); Chloride 107 mmol/L (98-107); Magnesium 2.1 mg/dL (1.6-2.6); Sodium 138 mmol/L (136-145); Total Protein 5.8 g/dL (5.7-8.2)
[2025-02-11 06:36] LABS: Alanine Aminotransferase 139 U/L (7-40); Bilirubin, Total 0.2 mg/dL (0.2-1.0); Glucose 110 mg/dL (74-106)
[2025-02-11 08:00] VITALS: RESP 18; O2SAT 98
[2025-02-11 09:00] VITALS: BP 105/71; PULSE 72; RESP 18; TEMP 97.8; O2SAT 98
[2025-02-11] MEDS ORDERED: CEPH250C PO ×2 (10:11→11:15)
[2025-02-11] MEDS: SODIUM CHLORIDE 0.9% 500 ML IV ONE (10:28)
[2025-02-11] MEDS: HYDROcodone-ACET 5/325MG TAB PO PRN (10:39)
[2025-02-11] MEDS: SODIUM CHLORIDE 0.9% 1,000 ML IV SCH (10:58)
[2025-02-11 11:41] VITALS: BP 105/71; PULSE 72; RESP 16; TEMP 36.6; O2SAT 98
[2025-02-11] MEDS ORDERED: ACET-1079 PO (12:05)
--- NOTE | 2025-02-11 12:07 | DVHDSRES ---
Discharge Summary Date of Admission Resident Creating Document: LOUIE VAN RESIDENT Feb 07, 2025 at 18:39 Date of Discharge: Feb 11, 2025 Admitting Diagnosis Right Hand celullitis Labs/Diagnostic Data: Laboratory Results Test 02/11/25 05:42 02/09/25 12:58 02/09/25 06:00 02/08/25 15:30 White Blood Count 7.8 10^3/uL (4.4-10.8) Red Blood Count 3.57 10^6/uL (4.5-5.90) Hemoglobin 11.9 g/dL (13.5-17.5) Hematocrit 34.6 % (41.0-53.0) Mean Corpuscular Volume 96.9 fL (80.0-100.0) Mean Corpuscular Hemoglobin 33.5 pg (28.0-32.0) Mean Corpuscular Hemoglobin Concent 34.5 g/dL (32.0-36.0) Red Cell Distribution Width 13.3 % (11.8-14.3) Platelet Count 355 10^3/uL (140-450) Mean Platelet Volume 7.3 fL (6.9-10.8) Neutrophils (%) (Auto) 55.2 % (37.0-80.0) Lymphocytes (%) (Auto) 30.0 % (10.0-50.0) Monocytes (%) (Auto) 8.8 % (0.0-12.0) Eosinophils (%) (Auto) 4.6 % (0.0-7.0) Basophils (%) (Auto) 1.4 % (0.0-2.0) Neutrophils # (Auto) 4.3 10 ^3/uL (1.6-8.6) Lymphocytes # (Auto) 2.3 10 ^3/uL (0.4-5.4) Monocytes # (Auto) 0.7 10 ^3/uL (0-1.3) Eosinophils # (Auto) 0.4 10 ^3/uL (0-0.8) Basophils # (Auto) 0.1 10 ^3/uL (0-0.2) Nucleated Red Blood Cells 0.1 % Sodium Level 138 mmol/L (136-145) Potassium Level 4.0 mmol/L (3.5-5.1) Chloride Level 107 mmol/L (98-107) Carbon Dioxide Level 24 mmol/L (20-31) Anion Gap 7 (5-15) Blood Urea Nitrogen 16 mg/dL (9-23) Creatinine 0.63 mg/dL (0.700-1.30) Glomerular Filtration Rate Calc 120 mL/min (>90) BUN/Creatinine Ratio 25.4 (10.0-20.0) Serum Glucose 110 mg/dL (74-106) Calcium Level 8.8 mg/dL (8.7-10.4) Magnesium Level 2.1 mg/dL (1.6-2.6) Total Bilirubin 0.2 mg/dL (0.2-1.0) Aspartate Amino Transferase (AST) 17 U/L (13-40) Alanine Aminotransferase (ALT) 139 U/L (7-40) Alkaline Phosphatase 112 U/L (46-116) Total Protein 5.8 g/dL (5.7-8.2) Albumin 3.2 g/dL (3.2-4.8) Vancomycin Level Trough 10.8 ug/mL (5-10) Hepatitis B Surface Antigen Negative (Negative) Hepatitis B Core IgM Antibody Negative (Negative) HIV (1&2) Antibody Negative (Negative) Test 02/08/25 06:20 02/08/25 04:43 02/07/25 12:53 02/07/25 12:50 Prothrombin Time 12.2 sec (9.3-11.8) Prothrombin Time INR 1.17 (0.9-1.15) Activated Partial Thromboplast Time 37.5 SEC (24.5-34.5) Hepatitis A IgM Antibody Negative Hepatitis B Surface Antibody Positive (Negative) Hepatitis C Antibody Negative (Negative) Urine Color Light-yellow (Yellow) Urine Clarity Clear (Clear) Urine pH 6.5 (5.0-9.0) Urine Specific Hoffman 1.028 (1.001-1.035) Urine Protein Negative (Negative) Urine Ketones Negative (Negative) Urine Blood Negative /uL (Negative) Urine Nitrite Negative (Negative) Urine Bilirubin Negative (Negative) Urine Urobilinogen 4 mg/dL (Negative) Urine Leukocyte Esterase Negative /uL (Negative) Urine RBC <1 /hpf (0 - 3) Urine Microscopic WBC 2 /HPF (0-3) Urine Squamous Epithelial Cells None seen /hpf (<5) Urine Bacteria None seen /hpf (None Seen) Urine Glucose Normal mg/dL (Normal) Urine Opiates Screen Neg (NEGATIVE) Urine Fentanyl Screen Neg (NEGATIVE) Urine Barbiturates Screen Neg (NEGATIVE) Urine Phencyclidine Screen Neg (NEGATIVE) Urine Amphetamines Screen Pos (NEGATIVE) Urine Benzodiazepines Screen Neg (NEGATIVE) Urine Cocaine Screen Neg (NEGATIVE) Urine Cannabinoids Screen Neg (NEGATIVE) Lactic Acid Level 1.5 mmol/L (0.4-2.0) Hemoglobin A1c 5.5 % A1C (<5.7) Other Laboratory Tests 02/11/25 05:42 Brief Hx & Hospital Course: This is a 44 year-old male presented to the ED with RT hand swelling onset 2 days. Patient states he was cleaning trash from his backyard, is unsure whether he had a spider bite or nail puncture. Since then, patient has been experiencing pain, swelling, drainage from RT hand. Patient was initially being transferred to [facility] but unable to find a bed at multiple sites. After discussion with Dr. Saad Velasquez, patient will be admitted to [facility] for Surgery AM 02/08/25. On my initial assessment, patient was seen and examined at bedside. He currently states feeling well, denies any significant shortness of breath, chest pain, abdominal pain, dysuria, nausea, vomiting, diarrhea, constipation, dizziness, lightheadedness. He's currently tolerating diet. Patient is only complain of pain on his right hand, swelling, erythema, he is able to move the hand and the fingers, he is able to have sensation as well, no significant pain out of proportion on palpation. Further imaging revealed an abscess of his hand, no osteomyelitis, but did show tenosynovitis. Patient underwent incision and drainage by orthopedic doctor, it was successfully performed, significant drainage was obtained wound culture was sent. It was growing MSSA, patient was initially on broad-spectrum antibiotic but was then placed to cefazolin IV. He had significant clinical improvement from admission, he is tolerating diet, ambulatory, he is able to move his hand, has complete sensory. On my assessment, patient was seen and examined at bedside. Currently states feeling well, denies any significant shortness of breath, chest pain, abdominal pain, dysuria, nausea, vomiting, diarrhea, constipation, dizziness, lightheadedness. Currently tolerating diet. Physical examination as below: General: Awake, alert, comfortable appearing, in no acute distress. HEENT: Head is normocephalic and atraumatic. Pupils are equal, round, and reactive to light. Extraocular muscles are intact. No nasal discharge. No facial trauma. Intraoral exam shows moist mucous membranes with no tonsillar enlargement or exudate. Neck: Supple with no cervical lymphadenopathy. Heart: Regular rate without murmur, rub, or gallop. Lungs: Equal breath sounds bilaterally with no wheezing, rales, or rhonchi. There is no chest wall tenderness or instability. Abdomen: No external sign of injury. Bowel sounds are present. Abdomen is soft, nontender. No rebound, no guarding, no rigidity. There are no palpable masses. There is no flank pain on exam. Extremities: Strong peripheral pulses. There is no clubbing, no cyanosis, and no edema. Skin: Right hand and arm are less swollen than admission, mild painful to palpation, mild amount of serosanguineous fluid from surgical site, dressing applied Neurologic: Cranial nerves II-XII intact without motor, sensory, or cerebellar deficit, no asterixis. Patient will be discharge home, will continue home medications as prescribed. He will continue taking Keflex 500 mg p.o. q.i.d. for the next two weeks, he will also continue taking Tylenol as needed. Follow-up with PCP in 1-2 weeks. Patient verbalized understanding and agree with the DC plan, we spent over 30 minutes explaining the plan. Case was discussed with Dr. Padilla Consults/Reason for consult Orthopedics was consulted for incision and drainage of right hand abscess Operations or Procedures Patient: JUHI NOONAN Acct: [id number] : 1980 Loc: [facility] Age/Sex: 44/M [facility] Attending Phy: LOUIE VAN RESIDENT Operative Report - 2 Report Details Date: 02/08/25 Preop Diagnosis: infected right dorsal hand abscess Postop Diagnosis: infected right dorsal hand abscess Surgeon: Saad Velasquez MD Anesthesiologist: Deb VIGIL Anesthesia: General Consent: The patient was informed of the risks and benefits of the procedure. These include but are not limited to complications of anesthesia, postoperative infection, incomplete relief of symptoms, recurrence of symptoms, damage to blood vessels, nerves and tendons, deep venous thrombosis, pulmonary embolism and possible need for repeat surgery in the future. Estimated Blood Loss: 5 cc Name of Procedure Performed Right hand irrigation and debridement, middle finger extensor tendon debridement Procedure Details Procedure Details: After administering appropriate antibiotics and anesthesia, the upper extremity was prepped and draped in the usual standard fashion. The arm was elevated and the tourniquet inflated to 250 mmHg. A zig-zag incision was made over base of right middle finger along abscess to mid hand. Dissection was carried down to the extensor sheath with care taken to identify and protect the neurovascular bundles. Patient was noted to have a large abscess. After irrigating out the wound with copious amounts of sterile saline, we then did a betadine lavage followed by another irrigation of 1L of normal saline. We then debrided the necrotic skin, fat, and nonviable tissue overlying the tendon. vanco powder placed inside the wound followed by iodoform. the skin was closed with 3-0 nylon simple interrupted sutures. The patient was sent to the recovery room in good condition, having tolerated the procedure well Specimen: culture x 3 Condition Fair Disposition 2 Still a Patient SAAD VELASQUEZ MD Feb 08, 2025 16:36 DICTATED BY:SAAD VELASQUEZ MD DICTATED DATE/TIME:02/08/25 1636 ELECTRONICALLY SIGNED BY:SAAD VELASQUEZ MD 02/08/25 163 ELECTRONICALLY CO-SIGNED BY: [place] [id number] Ph: [phone] DIAGNOSTIC IMAGING Diagnostic Imaging Report : [id number] Signed PATIENT: ALEX NOONANCT: [id number] UNIT: [id number] : 1980 LOC: ER ROOM / BED: / AGE / SEX: 44 / M ADM STATUS: REG ER SERVICE 1235 ORDERING PHYSICIAN: DUNIA WILSON MD PROCEDURE(s): RHAN - R HAND 3 VIEW XRAY REASON: hand infection ORDER NUMBER(s): [id number], ACCESSION NUMBER(s): [id number] R HAND 3 VIEW XRAY, INDICATION: hand infection TECHNICAL DATA: Frontal, oblique and lateral views were obtained of the right hand. COMPARISON: None FINDINGS: No fracture is identified. Chronic appearing injury of the 5th metacarpal bone. Joint spaces are maintained. Alignment is anatomic. Dorsal soft tissue swelling in the hand. IMPRESSION: 1. No acute fracture or dislocation of the right hand. 2. Dorsal soft tissue swelling of the hand. HS:Y ATED BY: RADHA MORALEZ MD DICTATED DATE/TIME: 02/07/251300 SIGNED BY: RADHA MORALEZ MD SIGNED DATE/TIME: 02/07/251300 CC: [place] [id number] Ph: [phone] DIAGNOSTIC IMAGING Diagnostic Imaging Report : [id number] Signed PATIENT: JUHI NOONAN RACCT: [id number] UNIT: [id number] : 1980 LOC: OVERFLOW ROOM / BED: [address] [place] [address] AGE / SEX: 44 / M ADM STATUS: ADM IN SERVICE 38 ORDERING PHYSICIAN: DOTTY ULLOA MD PROCEDURE(s): RUECT - RT UPPER EXTREMITY WITH CONT REASON: cellulitis ORDER NUMBER(s): [id number], ACCESSION NUMBER(s): [id number] EXAM: CT RT UPPER EXTREMITY WITH CONT INDICATION: cellulitis EXAM DATE: 02/07/2025 07:47 PM COMPARISON: None TECHNIQUE: Multiple axial CT images of the right upper extremity were obtained using bone algorithm. Axial and coronal reformatting was done. Bone and soft tissue windows were reviewed. Radiation Dose Information: CT Dose: CTDI volume is mGy. Dose-length product is mGy*cm Findings: There is significant soft tissue subcutaneous edema and fluid involving the dorsum of the hand and wrist and also involving the dorsum of the digits bones are unremarkable. And intact. IMPRESSION: Severe cellulitis. If more imaging is required I would recommend MRI exam ATED BY: SONIDO BRASHER MD DICTATED DATE/TIME: 02/07/252052 SIGNED BY: SONIDO BRASHER MD SIGNED DATE/TIME: 02/07/252052 CC: [address] [address] Ph: [phone] DIAGNOSTIC IMAGING Diagnostic Imaging Report : [id number] Signed PATIENT: JUHI NOONAN RACCT: [id number] UNIT: [id number] : 1980 LOC: [facility] AGE / SEX: 44 / M ADM STATUS: ADM IN SERVICE 0449 ORDERING PHYSICIAN: DOTTY ULLOA MD PROCEDURE(s): CXR1 - CHEST XRAY 1 VIEW REASON: FU ORDER NUMBER(s): [id number], ACCESSION NUMBER(s): [id number] EXAM: XR Chest, 1 View CLINICAL INDICATION: FU TECHNIQUE: Frontal view of the chest. COMPARISON: None FINDINGS: LUNGS AND PLEURAL SPACES: Pulmonary venous congestion. No consolidation. No pneumothorax. HEART: Unremarkable. No cardiomegaly. MEDIASTINUM: Unremarkable. Normal mediastinal contour. BONES/JOINTS: Unremarkable. No acute fracture. OTHER FINDINGS: . IMPRESSION: Pulmonary venous congestion. ATED BY: CY BHATTI MD DICTATED DATE/TIME: 02/08/25654 SIGNED BY: CY BHATTI MD SIGNED DATE/TIME: 02/08/25654 CC: [place] [id number] Ph: [phone] DIAGNOSTIC IMAGING Diagnostic Imaging Report : [id number] Signed PATIENT: JUHI NOONAN RACCT: [id number] UNIT: [id number] : 1980 LOC: [facility] AGE / SEX: 44 / M ADM STATUS: ADM IN SERVICE 0816 ORDERING PHYSICIAN: LOUIE VAN PROCEDURE(s): LIVUS - LIVER REASON: transaminitis ORDER NUMBER(s): [id number], ACCESSION NUMBER(s): [id number] INDICATION: transaminitis TECHNIQUE: Multiple real-time sonographic images were obtained of the right upper quadrant. COMPARISON: None FINDINGS: The liver demonstrates coarsened echotexture without focal mass lesions. The liver measures 16 cm. There is no intrahepatic or extrahepatic ductal dilatation. The common duct is not well visualized due to obscuration from bowel gas. Trace ascites. The gallbladder is surgically absent. The right kidney measures 11 cm. The right kidney is normal in contour, size, and shape. The echogenicity is normal. There is no hydronephrosis. The pancreas is not well visualized due to overlying bowel gas. IMPRESSION: Status post cholecystectomy. Coarsened liver echotexture suggestive of chronic liver disease. Trace ascites. ATED BY: HORACIO DIAZ MD DICTATED DATE/TIME: 02/08/25 1008 SIGNED BY: HORACIO DIAZ MD SIGNED DATE/TIME: 02/08/25 100 CC: [place] [id number] Ph: [phone] DIAGNOSTIC IMAGING Diagnostic Imaging Report : [id number] Signed PATIENT: JUHI NOONAN RACCT: [id number] UNIT: [id number] : 1980 LOC: [facility] ROOM / BED: [facility] / B AGE / SEX: 44 / M ADM STATUS: ADM IN SERVICE 1301 ORDERING PHYSICIAN: LOUIE VAN RESIDENT PROCEDURE(s): MRHAN - RT HAND MRI NON JOINT REASON: R/O OSTEIO ORDER NUMBER(s): [id number], ACCESSION NUMBER(s): [id number] EXAM: MRI RT HAND MRI NON JOINT HISTORY: R/O OSTEIO COMPARISON: None TECHNIQUE: Multiplanar, multisequence MRI of the right hand was performed. FINDINGS: Extensor tendons: Focal fluid distention of the 4th extensor tendon sheath at the level of the 4th metacarpal distal metadiaphysis with focal discontinuity of the left paramedian tendon sheath. Flexor tendons: Unremarkable. Joints: Unremarkable. Bone marrow: No focal lesion. Musculature: Thenar, hypothenar and intrinsic muscles of the hand are within normal limits. Overlying soft tissues: Extensive dorsal soft tissue edema noted. There is ulceration on the dorsal aspect of the hand, 3rd and 4th digits. No drainable fluid collection noted in this limited unenhanced study. IMPRESSION: 1. Cellulitis and dorsal soft tissue ulceration with no evidence of osteomyelitis or abscess formation in this limited unenhanced study. 2. Findings suggestive of 4th extensor tenosynovitis, possibly infectious. There is focal discontinuity of left paramedian dorsal tendon sheath at the level of 4th metacarpal distal metadiaphysis. ATED BY: MACKENZIE GARCÍA MD DICTATED DATE/TIME: 02/08/25 1509 SIGNED BY: MACKENZIE GARCÍA MD SIGNED DATE/TIME: 02/08/25 1509 CC: Condition at Discharge: Fair Final Diagnosis/Problems List Sepsis due to Right dorsal Hand Cellulitis, abscess s/p I&D Transaminitis Chronic liver disease, likely cirrhosis Anemia, mild normocytic normochromic Secondary coagulopathy History of schizophrenia Methamphetamine use Discharge Disposition: Home Discharge Instruct/Medications Diet: Regular Activity: No Restrictions, As Tolerated Follow Up/Referral: fu with pcp in 1-2 weeks Medications: continue meds as prescribed: keflex Discharge Statement: "Patient was advised to return to the ER or call 911 if any headaches, dizziness, shortness of breath, chest pain, abdominal pain, bleeding, fevers, or worsening of medical condition. Patient was counseled about treatment plan, medications, possible side effects, patientverbalized understanding. All questions were answered to the best of my ability. This discharge took greater then 30 minutes in planning, reviewing documentation, counseling the patient, and discussing with other team members." ASSESSMENT ASSESSMENT Assessment infected right dorsal hand abscess Date of Service: Feb 11, 2025 Billing Provider: AMERICO PADILLA MD Common Visit Codes: 49886-AEP/OBS DISCH DAY >30min LOUIE VAN RESIDENT Feb 11, 2025 12:07 AMERICO PADILLA MD Feb 11, 2025 23:26
[2025-02-11 13:00] VITALS: BP 98/62; PULSE 77; RESP 18; TEMP 98; O2SAT 98
== END 2025-02-11 13:45 | disposition home or self-care (01) | DRG 710 ==
LOC: ER 12:20 → OVERFLOW 18:39 → TELE-WESTW 21:46 → WEST WING 02-08 16:44
PROVIDERS: ADMIT Internal Medicine; ATTEND Internal Medicine
PROC: 0JBJ0ZZ Excision of Right Hand Subcutaneous Tissue and Fascia, Open Approach (ICD-10-PCS; principal; 2025-02-08 13:57)
DX: A41.9 Sepsis, unspecified organism (principal); D68.9 Coagulation defect, unspecified; E44.0 Moderate protein-calorie malnutrition; K74.60 Unspecified cirrhosis of liver; R71.0 Precipitous drop in hematocrit; L02.511 Cutaneous abscess of right hand; L03.113 Cellulitis of right upper limb; D64.9 Anemia, unspecified; F15.90 Other stimulant use, unspecified, uncomplicated; Z79.899 Other long term (current) drug therapy; R74.01 Elevation of levels of liver transaminase levels
CPT/HCPCS: 36415; 71045; 73130; 73201; 73218; 76705; 80053; 80202; 80307; 81001; 83036; 83605; 83735; 85025; 85610; 85730; 86703; 86705; 86706; 86709; 86803; 86850; 86900; 86901; 87040; 87070; 87075; 87077; 87186; 87205; 87340; 90715; 93005; G0378; J0692; J2185

== ENCOUNTER 2025-02-21 09:26 | Emergency (ER) | payer MEDICAID ==
[~2025-02-21] VITALS: Ht 157.5 cm; Wt 56.3 kg
[~2025-02-21 09:26] MED LIST: ACET-1079 PO; ARIP10TA29 PO; CEPH250C PO; OLAN20TA PO
--- NOTE | 2025-02-21 10:42 | ED.PDOC ---
History of Present Illness HPI Comments 44 y/o M presents with c/o right hand pain, swelling, and redness, today. Patient reports recent onset of symptoms following surgery to his same hand 2-3 weeks ago at [facility] for a puncture injury with a metal foreign body then. He states on finishing his course of antibiotics that he was given following discharge and having no improvement to his symptoms. Patient denies any numbness, tingling, discharge, fever, chills, or other associated symptoms or modifiers at this time. Chief Complaint: Wound Check Time Seen by MD: 10:30 Primary Care Provider: unknown Reviewed Notes: Nurses Notes, Medications, Allergies Allergies: Coded Allergies: NO KNOWN ALLERGIES (Unverified , 02/07/25) Home Meds Active Scripts Clindamycin Hcl (CLEOCIN) 150 Mg Cap, 1 CAP PO TID, #30 CAP Prov:KURTIS MEJÍA MD 02/21/25 Acetaminophen (Tylenol) 325 Mg Tb, 325 MG PO Q4HPRN PRN for 7 Days, #35 TAB Prov:LOUIE VAN RESIDENT 02/11/25 Cephalexin (KEFLEX CAPSULE) 250 Mg Cp, 2 CAP PO QID for 14 Days, #112 CAP Prov:LOUIE VAN RESIDENT 02/11/25 Reported Medications Olanzapine (Zyprexa) 20 Mg Tab, 10 MG PO DAILY for Schizophrenia, TAB 02/08/25 Aripiprazole (Aripiprazole) 10 Mg Tab, 10 MG PO DAILY for Schizophrenia, TAB 02/08/25 Information Source: Patient Mode of Arrival: Ambulatory Severity: Moderate Timing: Days Duration: Since onset Prehospital treatment: None Past Medical History PAST MEDICAL HISTORY: Gallstones Surgical History: Cholecystectomy Surgical History (Other): right hand surgeyr Family History Family History: Reviewed,noncontributory to illness, No family hx of Cancer, No family hx of DM, No family hx of Heart wisam, No family hx of HTN, No family hx ofKidney wisam, No family hx of Liver wisam, No family hx of Lung wisam, No family hx of Stroke Social History Smoker: Cigarettes Alcohol: Occasionally Drugs: Marijuana, Methamphetamine Lives In: Home Constitutional: denies: chills, diaphoresis, fatigue, fever, malaise, sweats, weakness, others EENTM: denies: blurred vision, double vision, ear bleeding, ear discharge, ear drainage, ear pain, ear ringing, eye pain, eye redness, hearing loss, mouth pain, mouth swelling, nasal discharge, nose bleeding, nose congestion, nose pain, photophobia, tearing, throat pain, throat swelling, voice changes, others Respiratory: denies: cough, hemoptysis, orthopnea, SOB at rest, shortness of breath, SOB with excertion, stridor, wheezing, others Cardiovascular: denies: chest pain, dizzy spells, diaphoresis, Dyspnea on ex ertion, edema, irregular heart beat, left arm pain, lightheadedness, palpitations, PND, syncope, others Gastrointestinal: denies: abdomen distended, abdominal pain, blood streaked bowels, constipated, diarrhea, dysphagia, difficulty swallowing, hematemesis, melena, nausea, poor appetite, poor fluid intake, rectal bleeding, rectal pain, vomiting, others Genitourinary: denies: burning, dysuria, flank pain, frequency, hematuria, incontinence, penile discharge, penile sore, pain, testicle pain, testicle swelling, urgency, others Neurological: denies: dizziness, fainting, headache, left sided numbness, left sided weakness, numbness, paresthesia, pre-existing deficit, right sided numbness, right sided weakness, seizure, speech problems, tingling, tremors, weakness, others Musculoskeletal: reports: others (right hand pain, swelling, and redness); denies: back pain, gout, joint pain, joint swelling, muscle pain, muscle stiffness, neck pain Integumetry: denies: bruises, change in color, change in hair/nails, dryness, laceration, lesions, lumps, rash, wounds, others Allergic/Immunocompromised: denies: Difficulty Healing, Frequent Infections, Hives, Itching, others Hematologic/Lymphatic: denies: anemia, blood clots, easy bleeding, easy bruising, swollen glands, others Endocrine: denies: excessive hunger, excessive sweating, excessive thirst, excessive urination, flushing, intolerance to cold, intolerance to heat, unexplained weight gain, unexplained weight loss, others Psychiatric: denies: anxiety, bipolar disorder, depression, hopeless, panic disorder, schizophrenia, sleepless, suicidal, others All Other Systems: Reviewed and Negative Physical Exam General Appearance: No Apparent Distress HEENT: Normal ENT Inspection, Pharynx Normal, TMs Normal Neck: Full Range of Motion, Non-Tender, Normal, Normal Inspection Respiratory: Chest Non-Tender, Lungs Clear, No Accessory Muscle Use, No Respiratory Distress, Normal Breath Sounds Cardiovascular: No Edema, No JVD, No Murmur, No Gallop, Normal Peripheral Pulses, Regular Rate/Rhythm Breast Exam: Deferred Gastrointestinal: No Organomegaly, Non Tender, No Pulsatile Mass, Normal Bowel Sounds, Soft Genitalia: Deferred Pelvic: Deferred Rectal: Deferred Extremities: No calf tenderness, Normal capillary refill, No pedal edema Musculoskeletal : Apperance: Normal Neurologic: Alert, entertainment production professional II-XII nml as Tested, No Motor Deficits, Normal Affect, Normal Mood, No Sensory Deficits Cerebellar Function: Normal Reflexes: Normal Skin: Dry, Normal Color, Warm, Other (Right hand has some mild redness on the dorsum around some of the sutures. There is no sign of any drainage. The patient does have full range of motion) Lymphatic: No Adenopathy Was a procedure done? Was a procedure done?: No Differential Dx Considerations may include: post-op complication, secondary infection, cellulitis, dermatitis, osteomyelitis, among others X-Ray, Labs, Meds, VS Vital Signs Date Time Temp Pulse Resp B/P (MAP) Pulse Ox O2 Delivery O2 Flow Rate FiO2 02/21/25 09:42 98.5 81 16 146/89 (108) 97 98.5 Lab Test 02/21/25 10:38 Range/Units White Blood Count 4.8 4.4-10.8 10^3/uL Red Blood Count 4.05 L 4.5-5.90 10^6/uL Hemoglobin 12.9 L 13.5-17.5 g/dL Hematocrit 39.1 L 41.0-53.0 % Mean Corpuscular Volume 96.6 80.0-100.0 fL Mean Corpuscular Hemoglobin 31.8 28.0-32.0 pg Mean Corpuscular Hemoglobin Concent 32.9 32.0-36.0 g/dL Red Cell Distribution Width 13.3 11.8-14.3 % Platelet Count 394 140-450 10^3/uL Mean Platelet Volume 7.4 6.9-10.8 fL Neutrophils (%) (Auto) 50.9 37.0-80.0 % Lymphocytes (%) (Auto) 38.0 10.0-50.0 % Monocytes (%) (Auto) 8.5 0.0-12.0 % Eosinophils (%) (Auto) 1.6 0.0-7.0 % Basophils (%) (Auto) 1.0 0.0-2.0 % Neutrophils # (Auto) 2.5 1.6-8.6 10 ^3/uL Lymphocytes # (Auto) 1.8 0.4-5.4 10 ^3/uL Monocytes # (Auto) 0.4 0-1.3 10 ^3/uL Eosinophils # (Auto) 0.1 0-0.8 10 ^3/uL Basophils # (Auto) 0 0-0.2 10 ^3/uL Nucleated Red Blood Cells 0.0 % Sodium Level 138 136-145 mmol/L Potassium Level 3.9 3.5-5.1 mmol/L Chloride Level 103 98-107 mmol/L Carbon Dioxide Level 28 20-31 mmol/L Anion Gap 7 5-15 Blood Urea Nitrogen 20 9-23 mg/dL Creatinine 0.88 0.700-1.30 mg/dL Glomerular Filtration Rate Calc 109 >90 mL/min BUN/Creatinine Ratio 22.7 H 10.0-20.0 Serum Glucose 100 74-106 mg/dL Calcium Level 9.8 8.7-10.4 mg/dL CAT scan of the right hand shows: IMPRESSION: 1. Marked soft tissue swelling of the dorsal aspect of the hand, especially the 3rd digit. The findings may represent cellulitis in the appropriate clinical setting. 2. No cortical destruction to suggest osteomyelitis. The patient is being discharged and will follow up with the primary care doctor The patient was given clindamycin IV piggyback here in the emergency department 's The patient's CBC and chemistry panel are within normal limits At this time, the patient was given a prescription of Cleocin Patient was also told that he may need to follow up with at a facility that has a possible hand surgeon. The patient understands and agrees with the management Images Reviewed?: Images reviewed and evaluated by me Time of 1ST Reevaluation: 11:00 Reevaluation 1ST: Unchanged Time of 2ND Reevaluation: 11:54 Reevaluation 2ND: Improved Patient Education/Counseling: Diagnosis, Treatment, Prognosis, Need For Follow Up Family Education/Counseling: No Family Present Departure 1 Departure Time of Disposition: 11:54 Impression: Primary Impression: Cellulitis of right hand Disposition: HOME / SELF CARE / HOMELESS Condition: Fair e-Prescriptions Clindamycin Hcl (CLEOCIN) 150 Mg Cap 1 CAP PO TID, #30 CAP Prov: KURTIS MEJÍA MD 02/21/25 Discharged With: Self Critical Care Note Critical Care Time?: No Stability Stability form required: No Heart Score Heart Score: Heart Score Response (Comments) Value History N/A 0 EKG N/A 0 Age N/A 0 Risk Factors N/A 0 Troponin N/A 0 Total 0 I personally scribed for KURTIS MEJÍA MD ([email or web address]) on 02/21/25 at 10:42. Electronically submitted by Dante Ivy [email or web address]). KURTIS MEJÍA MD Feb 21, 2025 10:42
[2025-02-21 10:51] LABS: Basophils # (auto) 0 10 ^3/uL (0-0.2); Eosinophils # (auto) 0.1 10 ^3/uL (0-0.8); Eosinophils % (auto) 1.6 % (0.0-7.0); Hematocrit 39.1 % (41.0-53.0); Hemoglobin 12.9 g/dL (13.5-17.5); Lymphocytes # (auto) 1.8 10 ^3/uL (0.4-5.4); Mean Corpuscular Hemoglobin 31.8 pg (28.0-32.0); Mean Corpuscular Hgb Conc. 32.9 g/dL (32.0-36.0); Mean Corpuscular Volume 96.6 fL (80.0-100.0); Monocytes # (auto) 0.4 10 ^3/uL (0-1.3); Monocytes % (auto) 8.5 % (0.0-12.0); Neutrophils # (auto) 2.5 10 ^3/uL (1.6-8.6); Neutrophils % (auto) 50.9 % (37.0-80.0); Platelet Count (auto) 394 10^3/uL (140-450); Red Blood Cells 4.05 10^6/uL (4.5-5.90); Red Cell Distribution Width 13.3 % (11.8-14.3); White Blood Cell 4.8 10^3/uL (4.4-10.8)
[2025-02-21 11:02] LABS: Chloride 103 mmol/L (98-107); Potassium 3.9 mmol/L (3.5-5.1); Sodium 138 mmol/L (136-145)
[2025-02-21 11:03] LABS: Anion Gap 7 (5-15); Calcium 9.8 mg/dL (8.7-10.4); Carbon Dioxide 28 mmol/L (20-31)
[2025-02-21 11:08] LABS: BUN/Creatinine Ratio 22.7 (10.0-20.0); Blood Urea Nitrogen 20 mg/dL (9-23); Glucose 100 mg/dL (74-106)
--- NOTE | 2025-02-21 11:20 | DVH ---
CLINICAL INDICATION: 44 years old, Male; possible infection. TECHNIQUE: Noncontrast CT of the right hand was performed. Sagittal and coronal reformatted images ar e provided. COMPARISON: MRI of the right hand performed on 02/08/2025 CT Dose: CTDI volume is 7.75 mGy. Dose-length product is 192.52 mGy*cm FINDINGS: No fracture or dislocation. No cortical destruction. There is marked dorsal soft tissue swelling in the hand but most severe about the 3rd digit. No obvious fluid collection. IMPRESSION: 1. Marked soft tissue swelling of the dorsal aspect of the hand, especially the 3rd digit. The findin gs may represent cellulitis in the appropriate clinical setting. 2. No cortical destruction to suggest osteomyelitis. All CT scans at this medical facility are performed using dose modulation techniques as appropriate t o a performed exam including the following: Automated exposure control was utilized; adjustment of th e MA and/or KV according to patient size; and use of iterative reconstruction technique.
[2025-02-21] MEDS ORDERED: CLIN150C PO (11:52)
[2025-02-21] MEDS: CLINDAMYCIN 600MG IV 50 ML IV ONE (12:19)
[2025-02-21 13:24] VITALS: BP 142/87; PULSE 72; RESP 15; TEMP 97.8; O2SAT 99
== END 2025-02-21 13:25 | disposition home or self-care (01) ==
LOC: ER 09:26
DX: L03.113 Cellulitis of right upper limb (principal); F17.210 Nicotine dependence, cigarettes, uncomplicated; Z90.49 Acquired absence of other specified parts of digestive tract; Z98.890 Other specified postprocedural states
CPT/HCPCS: 36415; 73200; 80048; 85025; 96365; 99285; J3490